=== PATIENT | female | born 1975 | race African-American/Black ===

== ENCOUNTER 2024-05-28 23:02 | Emergency (ER) | payer BC ==
[~2024-05-28] VITALS: Ht 162.6 cm; Wt 77.1 kg
[2024-05-29] MEDS: ONDANSETRON HCL INJ 2MG/ML 2ML 2 MG/ML VIAL IV STA (00:18)
[2024-05-29] MEDS: KETOROLAC TROMETHAMINE 30 MG/ML VIAL IV STA (00:18)
[2024-05-29] MEDS: FAMOTIDINE 20 MG/2 ML VIAL IV STA (00:18)
[2024-05-29] MEDS: SODIUM CHLORIDE 0.9% 1000ML 1,000 ML IV ONE ×2 (00:19→03:59)
[2024-05-29] MEDS ORDERED: IOPAMIDOL 370 MG/ML 100 ML INFUS..BTL INJ ONE (01:31)
[2024-05-29 05:16] VITALS: PULSE 78; RESP 16; TEMP 97.9
[2024-05-29 05:18] VITALS: BP 144/82; PULSE 78; RESP 16; TEMP 97.9; O2SAT 99
[2024-05-29] MEDS ORDERED: ONDANSETRON ODT4 MG PO (14:42)
[2024-05-29] MEDS ORDERED: HYDROCODON-ACE1 EA11 PO (14:43)
== END 2024-05-29 05:21 | disposition left against medical advice (07) ==
LOC: FSED 23:06
DX: R10.13 Epigastric pain (principal); K80.20 Calculus of gallbladder without cholecystitis without obstruction; K83.8 Other specified diseases of biliary tract; R11.2 Nausea with vomiting, unspecified; R53.81 Other malaise
CPT/HCPCS: 74177; 76705; 81003; 81025; 96374; 96375; 99284; J0696; J1885; J2405; J7030; Q9967

== ENCOUNTER 2024-05-29 11:19 | Emergency (ER) | payer BC ==
[~2024-05-29] VITALS: Ht 162.6 cm; Wt 77.1 kg
[2024-05-29 11:30] VITALS: TEMP 98.4
[2024-05-29 13:23] LABS: BASOPHILS % 0.5 % (0.0-1.0); EOSINOPHILS # (AUTO) 0.1 (0.0-0.4); EOSINOPHILS % 1.8 % (0.0-6.0); HEMOGLOBIN 12.6 g/dL (12.0-16.0); LYMPHOCYTES # (AUTO) 2.1 (1.0-3.2); LYMPHOCYTES % 32.2 % (18.0-39.1); MEAN CORPUSCULAR HEMOGLOBIN 30.3 pg (28-32); MEAN CORPUSCULAR HGB CONC 34.1 g/dL (31-35); MEAN CORPUSCULAR VOLUME 88.9 fL (81-99); MONOCYTES # (AUTO) 0.4 (0.2-0.8); MONOCYTES % 6.1 % (4.4-11.3); NEUTROPHILS # (AUTO) 3.9 (2.1-6.9); NEUTROPHILS % 59.2 % (38.7-80.0); PLATELET COUNT 357 x10e3/uL (140-360); RED BLOOD COUNT 4.16 x10e6/uL (3.6-5.1); RED CELL DISTRIBUTION WIDTH 12.7 % (11.7-14.4); WHITE BLOOD COUNT 6.61 x10e3/uL (4.8-10.8)
[2024-05-29 13:58] LABS: ANION GAP 14.2 mmol/L (8-16); CREATININE, SERUM 0.73 mg/dL (0.57-1.11)
[2024-05-29 14:01] LABS: POTASSIUM 3.2 mmol/L (3.5-5.1)
[2024-05-29 14:26] VITALS: PULSE 75; RESP 18
[2024-05-29] MEDS: ONDANSETRON HCL INJ 2MG/ML 2ML 2 MG/ML VIAL IV STA (14:39)
[2024-05-29] MEDS: KETOROLAC TROMETHAMINE 30 MG/ML VIAL IV STA (14:39)
[2024-05-29] MEDS: DICYCLOMINE HCL 20 MG/2 ML VIAL IM ONE (14:39)
[2024-05-29] MEDS ORDERED: ONDANSETRON ODT4 MG PO (14:42)
[2024-05-29] MEDS ORDERED: HYDROCODON-ACE1 EA11 PO (14:43)
[2024-05-29 15:02] VITALS: BP 134/88; PULSE 79; RESP 18; TEMP 97.2; O2SAT 100
== END 2024-05-29 15:03 | disposition home or self-care (01) ==
LOC: ER 12:11
DX: R10.13 Epigastric pain (principal); K80.20 Calculus of gallbladder without cholecystitis without obstruction
CPT/HCPCS: 36415; 80053; 83690; 85025; 99284; J0500; J1885; J2405